=== PATIENT | female | born 1940 | race Caucasian/White ===

== ENCOUNTER 2016-09-05 10:04 | Emergency (ER) | payer MEDICARE, OTHER ==
[2016-09-05 08:01] LABS: BASOPHILS 0.3 %; BASOPHILS ABSOLUTE 0.03 10/3/uL (0.0-0.16); EOSINOPHILS 0.1 %; EOSINOPHILS ABSOLUTE 0.01 10/3/uL (0.0-0.53); HEMOGLOBIN 12.9 g/dL (12.0-16.0); IMMATURE GRANULOCYTES 0.4 %; IMMATURE GRANULOCYTES ABSOLUTE 0.05 10/3/uL (0.0-0.11); LYMPHOCYTES 6.5 %; LYMPHOCYTES ABSOLUTE 0.74 10/3/uL (0.67-4.30); MEAN CORPUS HGB CONC 35.8 g/dL (32.0-36.0); MEAN CORPUSCULAR HEMOGLOB 32.3 pg (26.0-34.0); MEAN PLATELET VOLUME 10.1 fL (9.2-13.0); MONOCYTES 5.3 %; NEUTROPHILS 87.4 %; NEUTROPHILS ABSOLUTE 9.93 10/3/uL (2.02-8.40); RBC DISTRIBUTION WIDTH 14.2 % (12.0-16.0); RED CELL COUNT 3.99 10/6/uL (4.0-5.6)
[2016-09-05 08:02] LABS: ER CBC TAT 0 Hrs 07 Mins; MANUAL DIFF NO %; MEAN CORPUSCULAR VOLUME 90.2 fL (80-100); PLATELET COUNT 433 10/3/uL (150-400); WHITE BLOOD CELLS 11.4 10/3/uL (4.5-10.5)
[2016-09-05 08:16] LABS: CALCIUM, SERUM 9.6 MG/DL (8.5-10.4); CHLORIDE, SERUM 102 MMOL/L (96-112); CO2 (CARBON DIOXIDE) 23 MMOL/L (24-34); CREATININE 0.69 MG/DL (0.55-1.02); GFR AFRICAN AMERICAN 99 ML/MIN (>=60); GFR NON AFRICAN AMERICAN 85 ML/MIN (>=60); GLUCOSE, SERUM 93 MG/DL (60-99); POTASSIUM, SERUM 4.2 MMOL/L (3.5-5.3); SGOT(AST) 59 U/L (5-40); SGPT(ALT) 32 U/L (5-65); SODIUM, SERUM 136 MMOL/L (135-148); TOTAL BILIRUBIN 0.4 MG/DL (0-1.2); TOTAL PROTEIN 7.5 G/DL (6.0-8.5)
[2016-09-05 08:17] LABS: A/G RATIO 0.8 (0.7-1.9); ALBUMIN 3.3 G/DL (3.5-5.0); ALKALINE PHOSPHATASE 146 U/L (45-117); BUN (BLOOD UREA NITROGEN) 14 MG/DL (6-23); GLOBULIN 4.2 G/DL (2.5-4.1)
[~2016-09-05 10:04] MED LIST: ASAEC PO; FLUCON1 PO; NEUR300 PO; NORCO1 TA1 PO; NORV10 PO; PAIN MEDICATION PO; PLAVIX PO; PRAVAC PO; [UNRECOGNIZED DRUG - REMARK]; [UNRECOGNIZED DRUG - REMARK]
== END 2016-09-05 14:40 | disposition home or self-care (01) ==
LOC: ER 10:04
PROVIDERS: Emergency Medicine
DX: J90 Pleural effusion, not elsewhere classified (principal); R10.11 Right upper quadrant pain; C34.90 Malignant neoplasm of unspecified part of unspecified bronchus or lung; I10 Essential (primary) hypertension; D64.9 Anemia, unspecified; F17.200 Nicotine dependence, unspecified, uncomplicated; Z86.73 Personal history of transient ischemic attack (TIA), and cerebral infarction without residual deficits; Z79.899 Other long term (current) drug therapy
CPT/HCPCS: 71010; 74176; 80053; 85025; 87040; 87070; 87205; 93005; 94640; 96374; 99285; A9270-GY; J2930

== ENCOUNTER 2016-09-11 22:22 | Inpatient (IN) | payer MEDICARE, OTHER ==
--- NOTE | ~2016-09-11 | HP ---
History And Physical [place] [address] [facility] [place]. 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 HISTORY OF PRESENT ILLNESS: The patient's history was obtained through careful interview with the patient and stepdaughter, coupled with review of [facility] and [facility]. The patient first developed squamous cell carcinoma of the lung in early 2015 with stage 1 and 3. The patient underwent significant radiation therapy under the care of Dr. Baron, and the surgical evaluation under the care of Dr. Valverde, and seemed to recover well from this. She did however developed dysphagia and had to eventually have a PEG tube placed which she has used without much complication or complaints. But then in July 2016, the patient was found on PET scan to have metastases that has developed extensively throughout the mediastinum and lung, and biopsy in late July 2016 confirm this diagnosis. The patient has therefore been started on Nivolumab under the care of Dr. Wells. But it was just about a week ago that she began to develop increasing shortness of breath characterized by dyspnea on exertion. She has a cough that is mostly nonproductive, but occasionally she will bring up thick sputum that she describes as looking like "fresh meat" but it does not have overt blood in it. She describes a heaviness over her chest associated with coughing and breathing, about a 6/10 severity. No headache. No nausea or vomiting. No throat pain. No abdominal pain. No back pain. She has lost about 10 pounds over the last six months, but her weight has really stabilized over the last month or two. No lightheadedness. No confusion. REVIEW OF SYSTEMS: Otherwise, a 14-point review of systems was obtained and was negative. PAST MEDICAL HISTORY: 1. Squamous cell carcinoma of the throat status post radiation therapy, now with metastases to the lung on "chemotherapy" under the care Dr. Wells and Dr. Baron. 2. Stroke left basal ganglia in 2008. 3. Urinary tract infection. 4. Hypertension. 5. Severe dysphagia with PEG tube placement. History And Physical [address] [place]. [address] NAME: TIERRA HARDY : 40 STATUS : ADM IN [facility]#: [id number] AGE: 75 ADM/REG DATE : 09/11/16 MR#: [id number] REPORT SERV DATE: 09/12/16 DICTATED BY: ESSENCE CARL DATE: 09/12/16 REPORT STATUS : Draft TRANSCRIBED BY: RUBENS DATE: 09/12/16 6. Anemia. 7. Type 2 myocardial infarction. 8. Systolic congestive heart failure with ejection fraction 40% to 45% on 09/07/2016. PAST SURGICAL HISTORY: PEG tube placement. ALLERGIES: NO KNOWN DRUG ALLERGIES. SOCIAL HISTORY: The patient is a smoker. Drinks occasional beer. Had been up to about two to three beers a day, but has cut back. She is a . Lives alone in [place], [place]. Has two step children. FAMILY HISTORY: Mother with renal cell carcinoma. Father of "old age." Sister with diabetes. CURRENT MEDICATIONS: 1. Norvasc 10 mg p.o. daily. 2. Doxycycline 100 mg p.o. b.i.d. 3. Combivent. 4. Megace. 5. Pravachol 20 mg p.o. daily. 6. Tylenol p.r.n. 7. Antihistamines. 8. Nivolumab. PHYSICAL EXAMINATION: VITAL SIGNS: Temperature 97.7, pulse 97, blood pressure 135/57, respiratory rate 24, and O2 saturation 95% on room air. GENERAL: An ill-appearing female, in evidence of distress secondary to cough and shortness of breath. HEENT: Pupils equal, round, and reactive to light. No conjunctival pallor. No scleral icterus. Nares are patent. Oropharynx is clear of obstruction. Moist mucous membranes. NECK: Trachea midline. No thyromegaly. LYMPH: No cervical lymphadenopathy. No supraclavicular lymphadenopathy. No inguinal lymphadenopathy. RESPIRATORY: The patient has inspiratory and expiratory wheezes. Harsh upper respiratory rhonchi. Diminished breath sounds at the base of lungs with dullness to percussion suggest moderate sized bilateral pleural effusions. She has a labored respiratory effort even at rest in the bed. CARDIOVASCULAR: Regular rate and rhythm. No murmurs, rubs, or gallops. No extremity edema is appreciated. ABDOMEN: Soft, nontender, and nondistended. Normal bowel sounds auscultated throughout. No hepatosplenomegaly. DERMATOLOGICAL: Warm and dry extremities. No pallor. No cyanosis. PSYCHIATRIC: Normal affect. Good mood. Alert and oriented x3. LABORATORY DATA: Influenza negative. History And Physical [address] [address] NAME: TIERRA HARDY : 40 STATUS : ADM IN [facility]#: [id number] AGE: 75 ADM/REG DATE : 09/11/16 MR#: [id number] REPORT SERV DATE: 09/12/16 DICTATED BY: ESSENCE CARL DATE: 09/12/16 REPORT STATUS : Draft TRANSCRIBED BY: MODL DATE: 09/12/16 White blood cell count 11, hemoglobin 12, hematocrit 34, and platelets 573. Sodium 132, potassium 3.9, chloride 96, bicarb 23, BUN 18, creatinine 0.71, and glucose 102. Albumin 2.8, AST 53, ALT 35, alkaline phosphatase 174, and total bilirubin 0.3. ABG demonstrates pH 7.52, a PaCO2 of 26, a PaO2 of 65, and a bicarb of 21. STUDIES: 1. Chest x-ray by my own evaluation shows diffuse metastatic disease of the lung with bilateral pleural effusions, flattening of the diaphragms, and COPD changes. 2. EKG by my own evaluation shows sinus rhythm, no major abnormalities. ASSESSMENT AND PLAN: 1. Chronic obstructive pulmonary disease exacerbation. Place on IV Solu-Medrol, Duo nebulizers, doxycycline. Check a procalcitonin. 2. Metastatic disease to the lung. The patient developed squamous cell carcinoma of the throat early in 2015, now with confirmed metastases to the mediastinum and lung. Currently on nivolumab through Dr. Wells. I discussed the case with his partner, Dr. Lee Calderon. 3. Pleural effusions. Consider therapeutic thoracentesis? 4. PEG tube. 5. Chronic systolic congestive heart failure. Ejection fraction 40% to 45%. KPL/MODL Essence Carl M.D. / [id number] CC: Cyndy Morrow III, M.D.
--- NOTE | ~2016-09-11 | DS ---
Discharge Summary [place] [address] [facility] [place]. [address] NAME: TIERRA HARDY : 40 STATUS : ADM IN [facility]#: [id number] AGE: 75 ADM/REG DATE : 09/11/16 MR#: [id number] REPORT SERV DATE: 09/15/16 DICTATED BY: TERRI HENDRICKS DATE: 09/15/16 REPORT STATUS : Draft TRANSCRIBED BY: MODL DATE: 09/15/16 ADMISSION DATE: 09/11/2016 DISCHARGE DATE: ADDENDUM: DISCHARGE MEDICATIONS: Norvasc 10 mg a day, aspirin 81 mg a day, Megace 30 mL daily, nicotine patch 21 mg topically, pravastatin 20 mg a day, Combivent 1 puff inhaled twice a day, Tylenol 650 b.i.d. p.r.n. for pain. Continue home antihistamine. The patient was given prescription tapering course of prednisone 40 mg daily for three days, then 30 mg daily for three days, then 20 mg daily for three days, then to stop. Lasix 40 mg daily, and Ceftin 500 mg p.o. b.i.d. for five days. Spent 45 minutes on discharge. MG/MODL Terri Hendricks M.D. / [id number] CC: Cyndy Vieyra
--- NOTE | ~2016-09-11 | DS ---
Discharge Summary [place] [address] [place]. [address] NAME: ITERRA HARDY : 40 STATUS : ADM IN [facility]#: [id number] AGE: 75 ADM/REG DATE : 09/11/16 MR#: [id number] REPORT SERV DATE: 09/15/16 DICTATED BY: TERRI HENDRICKS DATE: 09/15/16 REPORT STATUS : Draft TRANSCRIBED BY: MODL DATE: 09/15/16 ADMISSION DATE: 09/11/2016 DISCHARGE DATE: 09/15/2016 ONCOLOGIST: Dr. Wells. DIAGNOSES ON ADMISSION: 1. Chronic obstructive pulmonary disease exacerbation. 2. Metastatic disease to the lung/history of squamous cell carcinoma of the throat in 2017, now with confirmed metastasis to the mediastinum and lungs. 3. Pleural effusions, asymptomatic. 4. Chronic PEG tube. 5. Mild CHF. Chronic systolic dysfunction with an ejection fraction of 40% to 45%. DIAGNOSES ON DISCHARGE: 1. Chronic obstructive pulmonary disease exacerbation resolved. 2. CHF, chronic systolic dysfunction compensated. Ejection fraction 40 to 45%. Fluid restriction and oral Lasix recommended. 3. Squamous cell carcinoma of the throat, status post radiation therapy per oncologist Dr. Wells. 4. Metastasis to the lungs per oncologist Dr. Wells. 5. History of chronic dysphagia with a chronic PEG tube. 6. Chronic bilateral pleural effusions, stable. RACK LOADER ON THE CASE: Dr. Wells, oncologist. HISTORY OF PRESENT ILLNESS: Per dictation of Dr. Casillas on 09/11/2016. HOSPITAL COURSE: Hospital course per notes of Dr. Sauceda, I saw this patient today on 09/15/2016, and the patient wanted to be discharged home since yesterday per Dr. Sauceda's recommendation. We checked her oxygenation on room air. It was 97 at rest and 95 on ambulation, so she did not require any oxygen as well as she does not have shortness of breath and wheezing and doing well. She was evaluated by Physical Therapy and they were okay for her to go home although they recommended home health but the patient strongly refused home health. She is going home with a walker which will be arranged per case management. Also, Dr. Wells who saw the patient yesterday was contacted and his partner Dr. Arnulfo Nicholas recommended the patient to be discharged since her COPD exacerbation resolved. He also recommended the patient to follow up with Dr. Wells tomorrow in the office on 09/16/2016 at 10:15 and the patient was told about her appointment. She knows that she has an appointment tomorrow and the timing was also reported to the patient as well as there is a possibility that her cancer medicine nivolumab contributes to her shortness of breath, so, Dr. Wells needs to decide tomorrow if the patient needs to continue her chemotherapy or it should be on hold. This was also recommended by Dr. Wells's partner Dr. Arnulfo Nicholas. Regarding her CHF, she has chronic systolic dysfunction and according to echocardiogram, which was done on 09/07/2016, her ejection fraction was 40 to 45%. We recommended Lasix at Discharge Summary [address] [place]. [address] NAME: TIERRA HARDY : 40 STATUS : ADM IN [facility]#: [id number] AGE: 75 ADM/REG DATE : 09/11/16 MR#: [id number] REPORT SERV DATE: 09/15/16 DICTATED BY: TERRI HENDRICKS DATE: 09/15/16 REPORT STATUS : Draft TRANSCRIBED BY: MODSidney DATE: 09/15/16 40 mg a day and she was given IV Lasix here and she did not require any potassium supplementation. Her potassium has been in the appropriate range since 09/11/2016, admission; on 09/11/2016, was 3.9; on 09/12/2016, was 4.3; on 09/13/2016, was 4.5; and on 09/14/2016, was 4.8; and today 09/15/2016, was 4.1, so she needs to follow up with Margaret Macario and check her BMP and potassium on 09/18/2016. This was also discussed with the patient. The patient needs to be on a fluid restriction 1800 per 24 hours. The patient was discharged in stable condition. She will follow up with Dr. Wells as well. I spent 45 minutes on discharge. MG/MODL Terri Hendricks M.D. / [id number] CC: Cyndy Vieyra III, M.D.
[2016-09-11 21:37] LABS: BE (BASE EXCESS) -0.4 MEQ/L (0 +/- 2.5); INSTRUMENT SERIAL # 8087; PCO2 (CO2 TENSION) 26 MMHG (35-45); PO2 (O2 TENSION) 65 MMHG (79-93); pH 7.53 (7.37-7.43)
[2016-09-11 21:38] LABS: BASOPHILS 0.2 %; BASOPHILS ABSOLUTE 0.02 10/3/uL (0.0-0.16); EOSINOPHILS 0.6 %; EOSINOPHILS ABSOLUTE 0.07 10/3/uL (0.0-0.53); HEMATOCRIT 34.5 % (36.0-48.0); HEMOGLOBIN 12.1 g/dL (12.0-16.0); IMMATURE GRANULOCYTES 0.5 %; IMMATURE GRANULOCYTES ABSOLUTE 0.06 10/3/uL (0.0-0.11); LYMPHOCYTES 7.7 %; LYMPHOCYTES ABSOLUTE 0.85 10/3/uL (0.67-4.30); MEAN CORPUS HGB CONC 35.1 g/dL (32.0-36.0); MEAN CORPUSCULAR HEMOGLOB 31.6 pg (26.0-34.0); MEAN CORPUSCULAR VOLUME 90.1 fL (80-100); MEAN PLATELET VOLUME 10.4 fL (9.2-13.0); MONOCYTES 10.1 %; MONOCYTES ABSOLUTE 1.12 10/3/uL (0.21-1.20); NEUTROPHILS 80.9 %; NEUTROPHILS ABSOLUTE 8.93 10/3/uL (2.02-8.40); RBC DISTRIBUTION WIDTH 14.3 % (12.0-16.0); RED CELL COUNT 3.83 10/6/uL (4.0-5.6); WHITE BLOOD CELLS 11.1 10/3/uL (4.5-10.5)
[2016-09-11 21:38] LABS: ALLENS TEST Pos; CARBOXYHEMOGLOBIN 2.2 % (0-3); HCO3 (ACTUAL BICARBONATE) 21.2 MEQ/L (23-27); HEMOBLOGIN CONTENT 11.9 G/DL (12-16); METHEMOGLOBIN 0.1 % (0-3); O2 CONTENT 15.4 VOL% (18-24); OPERATOR ID 17589; SAMPLE Arterial
[2016-09-11 21:40] LABS: MANUAL DIFF NO %; PLATELET COUNT 573 10/3/uL (150-400)
[2016-09-11 21:55] LABS: A/G RATIO 0.6 (0.7-1.9); ALBUMIN 2.8 G/DL (3.5-5.0); ALKALINE PHOSPHATASE 174 U/L (45-117); BUN (BLOOD UREA NITROGEN) 18 MG/DL (6-23); CHLORIDE, SERUM 96 MMOL/L (96-112); CO2 (CARBON DIOXIDE) 23 MMOL/L (24-34); CREATININE 0.71 MG/DL (0.55-1.02); GFR AFRICAN AMERICAN 97 ML/MIN (>=60); GFR NON AFRICAN AMERICAN 83 ML/MIN (>=60); GLOBULIN 4.5 G/DL (2.5-4.1); GLUCOSE, SERUM 102 MG/DL (60-99); POTASSIUM, SERUM 3.9 MMOL/L (3.5-5.3); SGOT(AST) 53 U/L (5-40); SGPT(ALT) 35 U/L (5-65); SODIUM, SERUM 132 MMOL/L (135-148); TOTAL BILIRUBIN 0.3 MG/DL (0-1.2); TOTAL PROTEIN 7.3 G/DL (6.0-8.5)
[2016-09-11 22:01] LABS: INFLUENZA A SCREEN NEGATIVE (NEGATIVE); INFLUENZA B SCREEN NEGATIVE (NEGATIVE)
[2016-09-11] MEDS ORDERED: COMBIVENT RESPIM4 GM INH (22:49)
[2016-09-11] MEDS ORDERED: MONODOX100 MG PO (22:50)
[2016-09-11] MEDS ORDERED: PRAVAC PO (22:50)
[2016-09-11] MEDS ORDERED: MEGACEUDL PO (22:51)
[2016-09-11] MEDS ORDERED: T PO (22:52)
[2016-09-11] MEDS ORDERED: ANTIHISTAMINE OTC PO (22:53)
[2016-09-11] MEDS ORDERED: CHEMOTHERAPY (22:54)
[2016-09-12 06:31] LABS: BASOPHILS 0.1 %; BASOPHILS ABSOLUTE 0.01 10/3/uL (0.0-0.16); EOSINOPHILS 0 %; HEMATOCRIT 32.1 % (36.0-48.0); HEMOGLOBIN 11.4 g/dL (12.0-16.0); IMMATURE GRANULOCYTES 0.4 %; IMMATURE GRANULOCYTES ABSOLUTE 0.04 10/3/uL (0.0-0.11); LYMPHOCYTES 4.8 %; LYMPHOCYTES ABSOLUTE 0.44 10/3/uL (0.67-4.30); MEAN CORPUS HGB CONC 35.5 g/dL (32.0-36.0); MEAN CORPUSCULAR HEMOGLOB 31.8 pg (26.0-34.0); MEAN CORPUSCULAR VOLUME 89.4 fL (80-100); MEAN PLATELET VOLUME 10.1 fL (9.2-13.0); MONOCYTES 2.5 %; MONOCYTES ABSOLUTE 0.23 10/3/uL (0.21-1.20); NEUTROPHILS 92.2 %; NEUTROPHILS ABSOLUTE 8.47 10/3/uL (2.02-8.40); PLATELET COUNT 557 10/3/uL (150-400); RBC DISTRIBUTION WIDTH 14.1 % (12.0-16.0); RED CELL COUNT 3.59 10/6/uL (4.0-5.6); WHITE BLOOD CELLS 9.2 10/3/uL (4.5-10.5)
[2016-09-12 06:32] LABS: MANUAL DIFF NO %
[2016-09-12 06:43] LABS: INTERNATIONAL NORMAL RATI 1.2 UNITS (-); PROTIME (NOT ORD) 14.8 SEC (12.0-14.5)
[2016-09-12 06:53] LABS: A/G RATIO 0.6 (0.7-1.9); ALBUMIN 2.6 G/DL (3.5-5.0); CALCIUM, SERUM 9.2 MG/DL (8.5-10.4); CHLORIDE, SERUM 100 MMOL/L (96-112); CO2 (CARBON DIOXIDE) 20 MMOL/L (24-34); CPK 64 U/L (0-200); CREATININE 0.65 MG/DL (0.55-1.02); GFR AFRICAN AMERICAN 101 ML/MIN (>=60); GFR NON AFRICAN AMERICAN 87 ML/MIN (>=60); GLOBULIN 4.3 G/DL (2.5-4.1); POTASSIUM, SERUM 4.3 MMOL/L (3.5-5.3); SGOT(AST) 47 U/L (5-40); SGPT(ALT) 32 U/L (5-65); SODIUM, SERUM 133 MMOL/L (135-148); TOTAL BILIRUBIN 0.4 MG/DL (0-1.2); TOTAL PROTEIN 6.9 G/DL (6.0-8.5)
[2016-09-12 06:55] LABS: ALKALINE PHOSPHATASE 144 U/L (45-117); BUN (BLOOD UREA NITROGEN) 14 MG/DL (6-23); CK-MB 4.5 NG/ML; GLUCOSE, SERUM 152 MG/DL (60-99); TROPONIN I 0.51 NG/ML (<0.05)
[2016-09-12 07:15] LABS: PROCALCITONIN 0.29 ng/mL (<0.5)
[2016-09-13 07:03] LABS: BASOPHILS 0.1 %; BASOPHILS ABSOLUTE 0.01 10/3/uL (0.0-0.16); EOSINOPHILS 0 %; HEMATOCRIT 31.4 % (36.0-48.0); IMMATURE GRANULOCYTES 0.5 %; IMMATURE GRANULOCYTES ABSOLUTE 0.05 10/3/uL (0.0-0.11); LYMPHOCYTES 5.9 %; LYMPHOCYTES ABSOLUTE 0.62 10/3/uL (0.67-4.30); MEAN CORPUSCULAR HEMOGLOB 31.7 pg (26.0-34.0); MEAN CORPUSCULAR VOLUME 90.5 fL (80-100); MONOCYTES 6.4 %; MONOCYTES ABSOLUTE 0.67 10/3/uL (0.21-1.20); NEUTROPHILS 87.1 %; NEUTROPHILS ABSOLUTE 9.17 10/3/uL (2.02-8.40); PLATELET COUNT 530 10/3/uL (150-400); RBC DISTRIBUTION WIDTH 14.4 % (12.0-16.0); RED CELL COUNT 3.47 10/6/uL (4.0-5.6); WHITE BLOOD CELLS 10.5 10/3/uL (4.5-10.5)
[2016-09-13 07:11] LABS: MANUAL DIFF NO %
[2016-09-13 07:39] LABS: BUN (BLOOD UREA NITROGEN) 13 MG/DL (6-23); CALCIUM, SERUM 9.3 MG/DL (8.5-10.4); CHLORIDE, SERUM 100 MMOL/L (96-112); CO2 (CARBON DIOXIDE) 23 MMOL/L (24-34); CREATININE 0.71 MG/DL (0.55-1.02); GFR AFRICAN AMERICAN 97 ML/MIN (>=60); GFR NON AFRICAN AMERICAN 83 ML/MIN (>=60); POTASSIUM, SERUM 4.5 MMOL/L (3.5-5.3); SODIUM, SERUM 133 MMOL/L (135-148)
[2016-09-13 07:40] LABS: GLUCOSE, SERUM 121 MG/DL (60-99); TROPONIN I 0.33 NG/ML (<0.05)
[2016-09-14 06:02] LABS: CALCIUM, SERUM 9.1 MG/DL (8.5-10.4); CHLORIDE, SERUM 94 MMOL/L (96-112); CO2 (CARBON DIOXIDE) 22 MMOL/L (24-34); CREATININE 0.73 MG/DL (0.55-1.02); GFR AFRICAN AMERICAN 93 ML/MIN (>=60); GFR NON AFRICAN AMERICAN 81 ML/MIN (>=60); GLUCOSE, SERUM 107 MG/DL (60-99); POTASSIUM, SERUM 4.8 MMOL/L (3.5-5.3); SODIUM, SERUM 133 MMOL/L (135-148)
[2016-09-14 06:07] LABS: BUN (BLOOD UREA NITROGEN) 22 MG/DL (6-23)
[2016-09-15 06:00] LABS: BUN (BLOOD UREA NITROGEN) 25 MG/DL (6-23); CALCIUM, SERUM 9.3 MG/DL (8.5-10.4); CHLORIDE, SERUM 92 MMOL/L (96-112); CO2 (CARBON DIOXIDE) 26 MMOL/L (24-34); CREATININE 0.74 MG/DL (0.55-1.02); GFR AFRICAN AMERICAN 92 ML/MIN (>=60); GFR NON AFRICAN AMERICAN 79 ML/MIN (>=60); GLUCOSE, SERUM 113 MG/DL (60-99); POTASSIUM, SERUM 4.1 MMOL/L (3.5-5.3); SODIUM, SERUM 131 MMOL/L (135-148)
[2016-09-15] MEDS ORDERED: CEFT5 PO (15:21)
[2016-09-15] MEDS ORDERED: STERAPRED DS10 MG (15:21)
[2016-09-15] MEDS ORDERED: L40 PO (15:21)
== END 2016-09-15 16:04 | disposition home or self-care (01) | DRG 190 ==
LOC: ER 22:22 → 5SO 23:59
PROVIDERS: Hospitalist; Internal Medicine
DX: J44.1 Chronic obstructive pulmonary disease with (acute) exacerbation (principal); I50.23 Acute on chronic systolic (congestive) heart failure; C78.00 Secondary malignant neoplasm of unspecified lung; J90 Pleural effusion, not elsewhere classified; I11.0 Hypertensive heart disease with heart failure; C78.1 Secondary malignant neoplasm of mediastinum; Z93.1 Gastrostomy status; C14.0 Malignant neoplasm of pharynx, unspecified
CPT/HCPCS: 36600; 71010; 71020; 80048; 80053; 82550; 82553; 82805; 83605; 83735; 83880; 84145; 84443; 84484; 85025; 85610; 85730; 87040; 87070; 87077; 87186; 87205; 87804; 93005; 94640; 96374; 97161-GP; 97164-GP; 99285; A9270-GY; G8978-CH-GP; G8979-CH-GP; G8980-CH-GP; J2920; J2930

== ENCOUNTER 2016-09-19 21:54 | Inpatient (IN) | payer MEDICARE, OTHER ==
--- NOTE | ~2016-09-19 | HP ---
History And Physical [place] [place]. [address] NAME: TIERRA HARDY : 40 STATUS : ADM IN [facility]#: [id number] AGE: 75 ADM/REG DATE : 09/20/16 MR#: [id number] REPORT SERV DATE: 09/20/16 DICTATED BY: RUBÉN PETERSON DATE: 09/20/16 REPORT STATUS : Draft TRANSCRIBED BY: MODL DATE: 09/20/16 DATE OF ADMISSION: 09/20/2016 CHIEF COMPLAINT: She thinks her PEG tube is infected with discharge around it. 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 History is obtained from the patient and reviewing data available on the [email or web address] system. According to Mrs. Hardy, she had been in the usual state of health and has just finished her radiation therapy and three rounds of chemo for metastatic squamous cell carcinoma and feels that there is a malodorous discharge around the PEG tube, and it is infected. She decided to come to the emergency room to be evaluated. Other than that, she has not had any other significant symptoms. In the emergency room, initial workup showed that she had new-onset atrial fibrillation when compared to prior data available. She had metastatic disease to the lungs, liver, and other organs that is not new. She does have bilateral pleural effusions and an elevated troponin level as well. Hospitalist Service is asked to admit her for further evaluation and treatment. At the time of my evaluation, she denied any chest pain or palpitations. She has had no orthopnea. She did not have a cough, denied any hemoptysis, night sweats, or weight loss. She denied any fevers or chills but does feel cold all the time. She denied any nausea, vomiting, diarrhea, hematemesis, hematochezia, or hematuria. No other history of recent travel or exposures other than those mentioned above. 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 SOCIAL HISTORY: She has about 75-pack year history of smoking, although she quit few months ago. She has an occasional beer. Otherwise denied any recreational drug use. FAMILY HISTORY: Noncontributory. MEDICATIONS: At home were reviewed by me in the chart today and reordered by me. REVIEW OF SYSTEMS: As in history of present illness. All other systems were reviewed in detail and are quite unremarkable. PHYSICAL EXAMINATION: GENERAL: This is a pleasant 75-year old, not in any acute distress. She is alert, awake, oriented to time, place, and person. History And Physical [address] [address] NAME: TIERRA HARDY : 40 STATUS : ADM IN PAT#: [id number] AGE: 75 ADM/REG DATE : 09/20/16 MR#: [id number] REPORT SERV DATE: 09/20/16 DICTATED BY: RUBÉN PETERSON DATE: 09/20/16 REPORT STATUS : Draft TRANSCRIBED BY: RUBENS DATE: 09/20/16 HEENT: Her head is atraumatic, normocephalic. Her pupils are equal, reacting to light and accommodating. External ocular muscles are intact. Membranes are moist and pink. Sclerae are nonicteric. NECK: Supple with no jugular venous distention, lymphadenopathy, or thyromegaly. LUNGS: Clear to auscultation with no wheezes, rubs, or crackles. HEART: Heart sounds were irregularly irregular. ABDOMEN: Soft, nontender. Bowel sounds are present. EXTREMITIES: Showed no cyanosis, clubbing, or edema. NEUROLOGIC: Grossly intact. No focal sensory or motor deficits. Higher functions appeared intact. SKIN: The area around the PEG tube appeared to be discharge free at least at the time of my evaluation, but there is a bad odor. VITAL SIGNS: Her vital signs today showed a temperature of 97.4, pulse 106, respirations 28 a minute, blood pressure was 156/67, oxygen saturations were 96% on room air. LABORATORY DATA: Reviewed on the [email or web address] system showed a sodium of 128, potassium 3.1, chloride 89, and CO2 of 25. BUN was 24 with a creatinine of 0.84, and her glucose was 98. Her lactate today was 3.5. [place] [address], hemoglobin was 11.8, hematocrit 33.2, and platelet count was 561,000. Her prothrombin time was 14.4 with an INR of 1.1. Urinalysis was grossly unremarkable. Films of the chest x-ray were reviewed by me on the PACS today and interpreted by me. Per my interpretation, there are multiple metastatic nodules with bilateral pleural effusions. There is compressive atelectasis as well. Films of the CT scan of the abdomen and pelvis were reviewed by me on the PACS today and interpreted by me. There is metastatic disease as mentioned above with compressive atelectasis bilaterally versus pneumonia. A 12-lead EKG done in the emergency room was reviewed and interpreted by me. There is atrial fibrillation with a rate of 97. There is QT prolongation as well with a QTc of 571. IMPRESSION: 1. New-onset atrial fibrillation. 2. Metastatic squamous cell cancer. 3. PEG tube infection. 4. Elevated troponin. 5. Bilateral pleural effusions. 6. Chronic obstructive pulmonary disease. PLAN: We will admit Mrs. Hardy to the Hospitalist Service with cardiac telemetry. We will go ahead and consult Dr. Yahir Wells, her oncologist as she is on chemotherapy at this time. Her atrial fibrillation is rate controlled. I am a little hesitant in starting her on heparin infusion because of her malignant pleural effusions. I do not know if these are hemorrhagic at this point. We will get an echocardiogram in the morning and check her BNP as well. We will go ahead and consult Cardiology Service to evaluate her. Meanwhile, we will also follow serial cardiac enzymes to rule out acute coronary syndrome. We will History And Physical [address] [address] NAME: TIERRA HARDY : 40 STATUS : ADM IN [facility]#: [id number] AGE: 75 ADM/REG DATE : 09/20/16 MR#: [id number] REPORT SERV DATE: 09/20/16 DICTATED BY: RUBÉN PETERSON DATE: 09/20/16 REPORT STATUS : Draft TRANSCRIBED BY: MODSidney DATE: 09/20/16 obtain cultures at this point and start her on empiric IV antibiotics. We will also get Gastroenterology Service to evaluate her PEG tube. Meanwhile, we will go ahead and maximize her bronchodilator treatments, continue supplemental oxygen therapy. We will continue all other home medications and treatments at this time and place her on unfractionated heparin subcutaneously for DVT prophylaxis. Please see today's orders for details. I have discussed the above plans with the patient. Her questions were answered, and she is agreeable to the above recommendations. Hospitalist Service will be following her during her stay here. /RUBENS Rubén Peterson M.D. / [id number] CC: Cyndy Galvan
--- NOTE | ~2016-09-19 | DS ---
Discharge Summary [facility] [address] [place]. [address] NAME: TIERRA HARDY : 40 STATUS : DIS IN PAT#: [id number] AGE: 75 ADM/REG DATE : 09/20/16 MR#: [id number] REPORT SERV DATE: 09/22/16 DICTATED BY: CECILIA BLAND II DATE: 09/21/16 REPORT STATUS : Draft TRANSCRIBED BY: MODL DATE: 09/21/16 ADMISSION DATE: 09/20/2016 DISCHARGE DATE: 09/21/2016 DISCHARGE DIAGNOSES: 1. Paroxysmal atrial fibrillation versus multifocal atrial tachycardia, though now in normal sinus rhythm. 2. Chronic systolic congestive heart failure. 3. Chronic bilateral pleural effusions. 4. Questionable PEG infection initially, though now none identified. 5. Chronic obstructive pulmonary disease, on home O2, stable. 6. Metastatic head and neck cancer, followed by Oncology. CONSULTS: Dr. Brewster with GI and Dr. Abreu with Cardiology. BRIEF HISTORY OF PRESENT ILLNESS: The patient is a 75-year-old female with the above history, who presented to [facility] due to concern about PEG tube being infected with drainage around it. She was also found to be in new onset atrial fibrillation and was subsequent admitted. For detailed history and physical examination, please see Dr. Rubén Delarosa's note from 09/20/2016. HOSPITAL COURSE: On admission, she was started on cefepime given she had a white count of 12 and was mildly tachycardic in the low 100s. She had no significant symptoms of shortness of breath or chest pain. Dr. Brewster was consulted regarding her PEG tube and thought that she had a loose bumper, which was tightened and the patient was educated. She had to readjust her bumper another time by Dr. Montanez, but currently stable, functioning well per Gastrografin study, and she is actually not even using it at home. She drinks her TwoCal and is actually able to swallow more than she was able to back in April. Regarding her paroxysmal atrial fibrillation that was concerning on admission, Cardiology thought this could also be multifocal atrial tachycardia. She was rate controlled without any additional medication and converted back to normal sinus rhythm. There was discussion between Dr. Abreu of Cardiology in Oncology and given her underlying disease and debility, they decided she was not a good anticoagulation candidate. On admission, she appeared to be hyponatremic with a mildly elevated BUN. She had been previously started on Lasix on her previous admission, which could account for some tachycardia. She was also mildly hypokalemic. She has a mildly decreased EF of 40% to 45% and bilateral pleural effusions. Her BNP is mildly elevated at 122, but at this point in time, appears fairly euvolemic. Chest x-ray showed increasing size and number of bilateral parenchymal and pleural based nodules compared to 09/14/2016. Also persistent bilateral pleural effusions and basilar atelectasis, would favor lisinopril over diuretic given her previous history of dysphagia and poor p.o. intake, so we will switch her over to JOANNA inhibitor. As there is no evidence of infection, we will discontinue her antibiotics and currently, the patient is doing well and wants to go home, so we will have her follow up in Oncology Clinic in one to two weeks. We will reserve her Lasix as needed for edema. DISCHARGE MEDICATIONS: Discharge Summary [address] [address] NAME: TIERRA HARDY : 40 STATUS : DIS IN PAT#: [id number] AGE: 75 ADM/REG DATE : 09/20/16 MR#: [id number] REPORT SERV DATE: 09/22/16 DICTATED BY: CECILIA BLAND II DATE: 09/21/16 REPORT STATUS : Draft TRANSCRIBED BY: RUBENS DATE: 09/21/16 1. Amlodipine 10 mg p.o. daily. 2. Aspirin 81 mg p.o. daily. 3. Lasix 40 mg p.o. daily p.r.n. edema. 4. Megace 30 mL p.o. daily. 5. Pravachol 20 mg p.o. daily. 6. Prednisone 10 day dose pack to finish taper. 7. Tylenol 60 mg p.o. daily p.r.n. 8. Albuterol neb four times a day. 9. Lisinopril 10 mg p.o. daily. DISCHARGE INSTRUCTIONS: The patient will follow up with Dr. Wells in one to two weeks. LILIA/RUBENS Cecilia Bland II, MD / [id number] CC: Cecilia Bland II, MD [facility] [place]
--- NOTE | ~2016-09-19 | CN ---
Consultation Report [facility] [address] [place]. [address] NAME: TIERRA HARDY : 40 STATUS : ADM IN [facility]#: [id number] AGE: 75 ADM/REG DATE : 09/20/16 MR#: [id number] REPORT SERV DATE: 09/20/16 DICTATED BY: LAN LOUISE DATE: 09/20/16 REPORT STATUS : Draft TRANSCRIBED BY: MODL DATE: 09/20/16 DATE OF CONSULTATION: 09/20/2016 HISTORY OF PRESENT ILLNESS: This is a 75-year-old white female, I am seeing for Dr. 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 Valverde also followed by Dr. Wells, metastatic disease to lung, liver, adrenals, also bilateral pleural effusions. Has had chemotherapy last infusion 3 weeks ago. Also history of radiation, admitted with new-onset Afib. Has had also intermittent abdominal pain around PEG site which was placed. The PEG was placed about 6 months ago. No obvious drainage from PEG. No redness or inflammation noted around the site. Has had a CT this admission revealing evidence of a metastatic disease. She also has history of COPD, history of some shortness of breath. No nausea or vomiting. No change in bowel habits. Does have history of hypertension. Hemoglobin 11.8, white count 12,600, and platelets 561,000. INR of 1.1. SOCIAL HISTORY: Positive EtOH or nicotine. FAMILY HISTORY: Negative for colon cancer. PHYSICAL EXAMINATION: GENERAL: Chronic ill-appearing white female, alert. HEENT: Anicteric. NECK: Negative. CHEST: Decreased breath sounds bilaterally. HEART: Irregular rhythm. ABDOMEN: Soft, nontender at the present time. PEG tube noted. The bumper was extremely loose. This was tightened down manually. No excoriation around PEG site. EXTREMITIES/NEUROLOGIC: Grossly intact. ASSESSMENT: 1. 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 2. Status post PEG placement six months ago for feeding difficulties, now with some intermittent pain and also has had a loose bumper, which was now tightened. 3. New-onset atrial fibrillation. 4. Chronic obstructive pulmonary disease. 5. Hypertension. SUGGESTIONS: 1. Continue current antibiotics. 2. Instructed on maintaining tight bumper to prevent back leakage. 3. We will check a Gastrografin study to check placement of PEG. 4. Dr. Montanez back in the a.m. DC/MODL Consultation Report [place] [id number] [facility] [address] [facility] [address] NAME: TIERRA HARDY : 40 STATUS : ADM IN PAT#: [id number] AGE: 75 ADM/REG DATE : 09/20/16 MR#: [id number] REPORT SERV DATE: 09/20/16 DICTATED BY: LAN LOUISE DATE: 09/20/16 REPORT STATUS : Draft TRANSCRIBED BY: RUBENS DATE: 09/20/16 Lan Louise M.D. / [id number] CC: Cyndy Galvan CINDY MARIE Henry Paik, M.D.
--- NOTE | ~2016-09-19 | CN ---
Consultation Report [facility] [address] [place]. [address] NAME: TIERRA HARDY : 40 STATUS : ADM IN [facility]#: [id number] AGE: 75 ADM/REG DATE : 09/20/16 MR#: [id number] REPORT SERV DATE: 09/20/16 DICTATED BY: LARRY ABREU JR. DATE: 09/20/16 REPORT STATUS : Draft TRANSCRIBED BY: RUBENS DATE: 09/20/16 CONSULTATION DATE OF CONSULTATION: 09/20/2016 INDICATIONS FOR REFERRAL: Possible atrial fibrillation. HISTORY OF PRESENT ILLNESS: Mrs. 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 She presented after chemotherapy and radiation therapy feeling that she has an infected PEG tube site. EKG in the ER suggests the possibility of paroxysmal atrial fibrillation versus multifocal atrial tachycardia. The patient is unaware of palpitations. She denies chest pain or changes in shortness of breath. She denies dizziness or presyncope. PAST MEDICAL HISTORY: Includes COPD, metastatic squamous cell carcinoma with radiation therapy and chemotherapy, history of PEG tube placement. 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 She has hypertension and mixed hyperlipidemia. ALLERGIES: DENIED. CURRENT MEDICATIONS: Please see the MAR which was reviewed. SOCIAL HISTORY: The patient has a [id number] history of tobacco use. She quit three-four months ago. She occasionally drinks one beer. She does not use recreational drugs. FAMILY HISTORY: Negative for early or mid life vascular events. REVIEW OF SYSTEMS: She denies bleeding diathesis. She has anorexia and some weight loss. She denies fever or chills. Remainder as in HPI or negative. PHYSICAL EXAMINATION: VITAL SIGNS: Blood pressure is 155/67, heart rate 80-106, respirations 16. GENERAL: Fairly cachectic elderly female, in no acute distress. HEENT: Anicteric, no scleral injection, no oral lesions. NECK: No JVD, supple, no bruits. LUNGS: Hyperexpanded but clear. CARDIOVASCULAR: Regular rate and rhythm with rare ectopy. ABDOMEN: Soft, nontender. Normoactive bowel sounds, no hepatosplenomegaly. EXTREMITIES: No clubbing, cyanosis or edema. SKIN: No visible rashes. NEURO/PSY: Normal affect, alert and oriented x3. Consultation Report [facility] [address] [place]. [address] NAME: TIERRA HARDY : 40 STATUS : ADM IN PAT#: [id number] AGE: 75 ADM/REG DATE : 09/20/16 MR#: [id number] REPORT SERV DATE: 09/20/16 DICTATED BY: LARRY ABREU JR. DATE: 09/20/16 REPORT STATUS : Draft TRANSCRIBED BY: RUBENS DATE: 09/20/16 LABORATORY DATA: Sodium is 128, potassium is 3.1, creatinine is 0.84. White count is 12.6 with hematocrit of 33, platelets are 561. Troponin is 0.09. BNP is 122. EKG: EKG reveals possible atrial fibrillation with heart rate of 97. Anterolateral ST and T wave abnormality, cannot exclude ischemia. MEDICAL DECISION MAKIN. Possible atrial fibrillation. The patient is in sinus rhythm currently. Telemetry has suggested atrial bigeminy. The patient is asymptomatic with her rhythm and did not have significantly tachycardic response. She does have a high CHADS2 score, but may be a poor anticoagulation candidate. We will need to confer with Oncology. We will check echocardiography with further recommendations to follow. 2. Abnormal troponin. The patient does not have evidence of an acute coronary syndrome. She has multiple risk factors for ischemic heart disease. We will follow serial troponins and re-evaluate with echocardiography. We will proceed with a conservative approach to care. 3. Hypertension. This is stable on medical therapy. 4. Mixed hyperlipidemia. The patient voices statin compliance. MARGA/RUBENS Larry Abreu Jr., M.D. / [id number] CC: MD Renaldo Miller II, Margaret Wells III, M.D.
[~2016-09-19 21:54] MED LIST changes: +ANTIHISTAMINE OTC PO; +CEFT5 PO; +CHEMOTHERAPY; +COMBIVENT RESPIM4 GM INH; +L40 PO; +MEGACEUDL PO; +MONODOX100 MG PO; +STERAPRED DS10 MG; +T PO
[2016-09-19 23:04] LABS: BASOPHILS 0 %; EOSINOPHILS 0.1 %; EOSINOPHILS ABSOLUTE 0.01 10/3/uL (0.0-0.53); ER CBC TAT 0 Hrs 05 Mins; HEMATOCRIT 33.2 % (36.0-48.0); HEMOGLOBIN 11.8 g/dL (12.0-16.0); IMMATURE GRANULOCYTES 0.5 %; IMMATURE GRANULOCYTES ABSOLUTE 0.06 10/3/uL (0.0-0.11); LYMPHOCYTES 4.6 %; LYMPHOCYTES ABSOLUTE 0.58 10/3/uL (0.67-4.30); MEAN CORPUS HGB CONC 35.5 g/dL (32.0-36.0); MEAN CORPUSCULAR HEMOGLOB 31.3 pg (26.0-34.0); MEAN CORPUSCULAR VOLUME 88.1 fL (80-100); MEAN PLATELET VOLUME 9.6 fL (9.2-13.0); MONOCYTES 10.4 %; MONOCYTES ABSOLUTE 1.31 10/3/uL (0.21-1.20); NEUTROPHILS 84.4 %; NEUTROPHILS ABSOLUTE 10.66 10/3/uL (2.02-8.40); PLATELET COUNT 561 10/3/uL (150-400); RBC DISTRIBUTION WIDTH 13.9 % (12.0-16.0); RED CELL COUNT 3.77 10/6/uL (4.0-5.6); WHITE BLOOD CELLS 12.6 10/3/uL (4.5-10.5)
[2016-09-19 23:06] LABS: MANUAL DIFF NO %
[2016-09-19] MEDS ORDERED: ALBUTEROL0.083 % INH (23:12)
[2016-09-19 23:14] LABS: INTERNATIONAL NORMAL RATI 1.1 UNITS (-); PARTIAL THROMBO TIME 28.9 SEC (22.5-37.2); PROTIME (NOT ORD) 14.4 SEC (12.0-14.5)
[2016-09-19] MEDS ORDERED: ASAB PO (23:17)
[2016-09-19 23:21] LABS: BUN (BLOOD UREA NITROGEN) 24 MG/DL (6-23); CALCIUM, SERUM 8.5 MG/DL (8.5-10.4); CHLORIDE, SERUM 89 MMOL/L (96-112); CO2 (CARBON DIOXIDE) 25 MMOL/L (24-34); CREATININE 0.84 MG/DL (0.55-1.02); GFR AFRICAN AMERICAN 79 ML/MIN (>=60); GFR NON AFRICAN AMERICAN 68 ML/MIN (>=60); GLUCOSE, SERUM 98 MG/DL (60-99); SODIUM, SERUM 128 MMOL/L (135-148)
[2016-09-19 23:22] LABS: LACTATE 3.5 MMOL/L (0.3-2.4); POTASSIUM, SERUM 3.1 MMOL/L (3.5-5.3)
[2016-09-19 23:24] LABS: CHEST PAIN PROFILE TAT 0 Hrs 25 Mins; TROPONIN I 0.09 NG/ML (<0.05)
[2016-09-19 23:39] LABS: ASCORBIC ACID (UR NOT ORDER) NEG (NEG); BILIRUBIN, URINE NEGATIVE (NEG); ER URINALYSIS TAT 0 Hrs 00 Mins; KETONE, URINE NEGATIVE (NEG); LEUKOCYTE ESTERASE(NOT OR LARGE (NEG); NITRITE (URINE) NEG (NEG); WBC (NOT ORDERED) (RFLEX) 4 (0-5)
[2016-09-20 10:12] LABS: BASOPHILS 0 %; EOSINOPHILS 0 %; HEMATOCRIT 31.7 % (36.0-48.0); IMMATURE GRANULOCYTES 0.4 %; IMMATURE GRANULOCYTES ABSOLUTE 0.04 10/3/uL (0.0-0.11); LYMPHOCYTES 4.5 %; LYMPHOCYTES ABSOLUTE 0.49 10/3/uL (0.67-4.30); MEAN CORPUS HGB CONC 34.7 g/dL (32.0-36.0); MEAN CORPUSCULAR HEMOGLOB 31.1 pg (26.0-34.0); MEAN CORPUSCULAR VOLUME 89.5 fL (80-100); MEAN PLATELET VOLUME 10.2 fL (9.2-13.0); MONOCYTES 3.1 %; MONOCYTES ABSOLUTE 0.34 10/3/uL (0.21-1.20); NEUTROPHILS ABSOLUTE 9.97 10/3/uL (2.02-8.40); PLATELET COUNT 572 10/3/uL (150-400); RBC DISTRIBUTION WIDTH 14.2 % (12.0-16.0); RED CELL COUNT 3.54 10/6/uL (4.0-5.6); WHITE BLOOD CELLS 10.8 10/3/uL (4.5-10.5)
[2016-09-20 10:13] LABS: MANUAL DIFF NO %
[2016-09-20 10:36] LABS: CALCIUM, SERUM 8.1 MG/DL (8.5-10.4); CHLORIDE, SERUM 93 MMOL/L (96-112); CO2 (CARBON DIOXIDE) 25 MMOL/L (24-34); CREATININE 0.62 MG/DL (0.55-1.02); GFR AFRICAN AMERICAN 102 ML/MIN (>=60); GFR NON AFRICAN AMERICAN 88 ML/MIN (>=60); GLUCOSE, SERUM 89 MG/DL (60-99); PHOSPHORUS, SERUM 2.2 MG/DL (2.5-4.5); POTASSIUM, SERUM 3.5 MMOL/L (3.5-5.3); SODIUM, SERUM 132 MMOL/L (135-148)
[2016-09-20 10:38] LABS: BUN (BLOOD UREA NITROGEN) 17 MG/DL (6-23); CK-MB 2.6 NG/ML; CPK 87 U/L (0-200); TROPONIN I 0.08 NG/ML (<0.05); ULTRASENSITIVE TSH 0.831 MCIU/ML (0.358-3.740)
[2016-09-20 15:21] LABS: CK-MB 2.1 NG/ML; CPK 73 U/L (0-200); TROPONIN I 0.07 NG/ML (<0.05)
[2016-09-21 05:33] LABS: BASOPHILS 0 %; EOSINOPHILS 0 %; HEMOGLOBIN 10.5 g/dL (12.0-16.0); IMMATURE GRANULOCYTES 0.5 %; IMMATURE GRANULOCYTES ABSOLUTE 0.05 10/3/uL (0.0-0.11); LYMPHOCYTES 5.2 %; LYMPHOCYTES ABSOLUTE 0.52 10/3/uL (0.67-4.30); MEAN CORPUSCULAR HEMOGLOB 31.5 pg (26.0-34.0); MEAN CORPUSCULAR VOLUME 90.1 fL (80-100); MEAN PLATELET VOLUME 9.9 fL (9.2-13.0); MONOCYTES 7.7 %; MONOCYTES ABSOLUTE 0.77 10/3/uL (0.21-1.20); NEUTROPHILS 86.6 %; NEUTROPHILS ABSOLUTE 8.65 10/3/uL (2.02-8.40); PLATELET COUNT 546 10/3/uL (150-400); RBC DISTRIBUTION WIDTH 14.6 % (12.0-16.0); RED CELL COUNT 3.33 10/6/uL (4.0-5.6)
[2016-09-21 05:36] LABS: CALCIUM, SERUM 8.5 MG/DL (8.5-10.4); CHLORIDE, SERUM 101 MMOL/L (96-112); CO2 (CARBON DIOXIDE) 22 MMOL/L (24-34); GFR AFRICAN AMERICAN 103 ML/MIN (>=60); GFR NON AFRICAN AMERICAN 89 ML/MIN (>=60); GLUCOSE, SERUM 91 MG/DL (60-99); POTASSIUM, SERUM 3.9 MMOL/L (3.5-5.3); SODIUM, SERUM 134 MMOL/L (135-148)
[2016-09-21 05:37] LABS: BUN (BLOOD UREA NITROGEN) 11 MG/DL (6-23); TROPONIN I 0.05 NG/ML (<0.05)
[2016-09-21 05:49] LABS: MANUAL DIFF NO %
[2016-09-21] MEDS ORDERED: PRIN10 PO (18:43)
== END 2016-09-21 19:45 | disposition home or self-care (01) | DRG 309 ==
LOC: ER 21:54 → 6NO 09-20 02:06
PROVIDERS: Emergency Medicine; Internal Medicine; Internal Medicine Cardiovascular Disease; Internal Medicine Pulmonary Disease
PROC: 3E0G7KZ Introduction of Other Diagnostic Substance into Upper GI, Via Natural or Artificial Opening (ICD-10-PCS; principal; 2016-09-21)
DX: I48.0 Paroxysmal atrial fibrillation (principal); I50.22 Chronic systolic (congestive) heart failure; C78.7 Secondary malignant neoplasm of liver and intrahepatic bile duct; C78.00 Secondary malignant neoplasm of unspecified lung; C15.9 Malignant neoplasm of esophagus, unspecified; E46 Unspecified protein-calorie malnutrition; K94.22 Gastrostomy infection; E87.1 Hypo-osmolality and hyponatremia; Z68.1 Body mass index [BMI] 19.9 or less, adult; R13.10 Dysphagia, unspecified; I47.1 Supraventricular tachycardia; E87.6 Hypokalemia; E78.2 Mixed hyperlipidemia; I10 Essential (primary) hypertension; J44.9 Chronic obstructive pulmonary disease, unspecified; Z92.3 Personal history of irradiation; Z92.21 Personal history of antineoplastic chemotherapy; Z87.891 Personal history of nicotine dependence; Z79.899 Other long term (current) drug therapy; Z79.82 Long term (current) use of aspirin
CPT/HCPCS: 49465; 71010; 74177; 80048; 81001; 82550; 82553; 83605; 83735; 83880; 84100; 84443; 84484; 85025; 85610; 85730; 87040; 87086; 93005; 94640; 96374; 99285; A9270-GY; J0692; J2930; J3370; Q9967

== ENCOUNTER 2016-09-23 14:28 | Observation (INO) | payer MEDICARE, OTHER ==
--- NOTE | ~2016-09-23 | DS ---
Discharge Summary [place] [address] [place]. [address] NAME: TIERRA HARDY : 40 STATUS : DIS Jerald PAT#: [id number] AGE: 75 ADM/REG DATE : 09/23/16 MR#: [id number] REPORT SERV DATE: 09/26/16 DICTATED BY: KATIA ANDRADE DATE: 09/25/16 REPORT STATUS : Draft TRANSCRIBED BY: MODL DATE: 09/25/16 ADMISSION DATE: 09/23/2016 DISCHARGE DATE: 09/25/2016 CHIEF COMPLAINT: Fall with right-sided pain. DISCHARGE DIAGNOSES: 1. Metastatic head, neck cancer with progression on Opdivo. 2. Rib fracture. 3. Hyponatremia, improved. 4. Pain. 5. History of atrial fibrillation. HISTORY OF PRESENT ILLNESS: Please see full H and P by Dr. Spangler for details regarding initial presentation. HOSPITAL COURSE: 1. Metastatic head and neck cancer. The patient was seen by Dr. Wells from Oncology who recommended home with hospice given progressive decline despite Opdivo. She is interested and this hospice has been consulted. She will be discharged home with [facility]. 2. Rib fracture. She was discharged on pain control. 3. Pain, acute on chronic. She was initially started on steroids. Those have been stopped. She will continue with outpatient home pain medication. 4. Mild hyponatremia. Her serum sodium was 129 on admission. Last checked yesterday was 134, this has resolved. DISPOSITION: Home with home hospice. HOME MEDICATIONS: Same as admission with the addition of [place] p.r.n. CODE STATUS AT DISCHARGE: Need to be addressed with Hospice. At this time, she has still remained a full code but again this will need to be addressed with Hospice. Time spent on discharge greater than 30 minutes. DNK/MODL Katia Andrade MD / [id number] CC: Katia Andrade MD Discharge Summary [place] [address] [place]. [address] NAME: TIERRA HARDY : 40 STATUS : DIS Jerald PAT#: [id number] AGE: 75 ADM/REG DATE : 09/23/16 MR#: [id number] REPORT SERV DATE: 09/26/16 DICTATED BY: KATIA ANDRADE DATE: 09/25/16 REPORT STATUS : Draft TRANSCRIBED BY: RUBENS DATE: 09/25/16 BUTCH WILSON
--- NOTE | ~2016-09-23 | HP ---
History And Physical [place] [id number] [place]. [address] NAME: TIERRA HARDY : 40 STATUS : ADM Jerald PAT#: [id number] AGE: 75 ADM/REG DATE : 09/23/16 MR#: [id number] REPORT SERV DATE: 09/24/16 DICTATED BY: ARLETH LEÓN DATE: 09/23/16 REPORT STATUS : Draft TRANSCRIBED BY: MODSidney DATE: 09/23/16 DATE OF ADMISSION: 09/23/2016 CHIEF COMPLAINT: Fall with right-sided rib pain. HISTORY OF PRESENT ILLNESS: The patient was recently discharged approximately 48 hours ago home and was doing well from hospital. Did have one episode of diarrhea after returning home, but otherwise did well yesterday. However today, she had a same-level fall in her bathroom, landed on her tub, and had subsequent rib pain. Symptoms have been continuous , constant, mild to moderate, unrelenting, sharp without radiation associated with weakness, although no shortness of breath, fever, chills, nausea, or vomiting. Did have one episode of diarrhea, which has resolved. Pain is worsened with deep breathing, exertion, and palpation; relieved slightly by rest. Symptoms are still currently present, reproducible. The patient reports that she simply just lost her balance, but no loss of conscious or head trauma. It is quite difficult to control pain at this time. REVIEW OF SYSTEMS: Ten-point review of systems negative except for that noted in the HPI. 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 SOCIAL HISTORY: A 63-[id number]-maba smoking, quit a few months ago. Occasional alcohol. No illegal drugs. SURGICAL HISTORY: PEG placement. ALLERGIES: NO KNOWN DRUG ALLERGIES. FAMILY HISTORY: Renal cell carcinoma and diabetes. HOME MEDICATIONS: Tylenol, albuterol, Norvasc, aspirin, Lasix, Prinivil, Megace, pravastatin, antihistamine, and chemotherapy by Dr. Wells. EKG: Unchanged from 09/21/2016 noted with PVCs, prolonged QT, T-wave inversions were also noted in prior EKGs in anterior lateral leads. PHYSICAL EXAMINATION: VITAL SIGNS: The patient's blood pressure 138/53, after morphine, is down to 100/50s; temperature 97.7; pulse 91; respirations 22; O2 is 96%. GENERAL: Elderly, frail, temporal wasting. Mild discomfort. EYES: No scleral icterus. EOMI. ENT: Nares patent. Dry mucous membranes. CHEST: Pain with palpation on the right side. RESPIRATORY: Mild end-expiratory wheeze. Increased AP diameter. CV: Regular rate. No rubs. No pedal edema. History And Physical [address] [place]. [address] NAME: TIERRA HARDY : 40 STATUS : ADM Jerald PAT#: [id number] AGE: 75 ADM/REG DATE : 09/23/16 MR#: [id number] REPORT SERV DATE: 09/24/16 DICTATED BY: ARLETH LEÓN DATE: 09/23/16 REPORT STATUS : Draft TRANSCRIBED BY: RUBENS DATE: 09/23/16 GI: Soft, nontender. PEG in place. : Deferred. MUSCULOSKELETAL: Moves all extremities x4. SKIN: Warm and dry. HEME: No bleeding or bruising. NEURO: Alert and oriented. Moves all extremities x4. PSYCH: Appropriate mood and affect. IMAGING: CT, acute nondisplaced posterolateral right sixth and mildly displaced posterolateral right seventh and eighth rib fractures since prior CT. No pneumothorax or other evidence of intrathoracic traumatic injury. Continued bilateral pleural and pulmonary nodules and loculated small pleural effusions mediastinal adenopathy. CT thoracic spine, no evidence of acute trauma thoracic spine. Lumbar grade 1 spondylolisthesis L4 and L5 of a few millimeters. No evidence of acute trauma to lumbar spine. Noted DJD. WBC 16.2, H and H 12.1 and 34.5, platelets 499, INR 1.1. Sodium 129, potassium 3.4, bicarb 23, BUN and creatinine 19 and 0.83, troponin 0.1, magnesium 2.0. ASSESSMENT AND PLAN: 1. Same-level fall. 2. Rib fracture. 3. Intractable pain. 4. Hyponatremia. 5. Chronic obstructive pulmonary disease. 6. Atrial fibrillation. 7. Lung cancer. 8. Leukocytosis. 9. Troponin elevation. PLAN: 1. For same-level fall, PT, OT. 2. Rib fracture noted on CT after same-level fall. No loss of consciousness. Monitor. Supportive treatment. 3. Intractable pain. Has been given IV morphine. Still requiring additional medications; however, blood pressure decreased after IV morphine. Give Toradol, lidocaine patch, IV steroids, and monitor. 4. Hyponatremia. Serial monitoring. Did have diarrhea episode. Gentle IV fluids. 5. COPD. Was being tapered on prednisone. Change to IV for additional pain control. 6. Atrial fibrillation. Appears sinus on panel monitor. 7. Lung cancer history per Dr. Wells. 8. Leukocytosis likely stress response after steroid taper and recent hospitalization and likely exacerbation by acute stress demargination. 9. Troponin elevation. Serial monitor troponins. EKG, although does have T-wave inversion in multiple leads, these are comparable to prior to discharge, likely type 2 demand from acute fall. All questions were answered with the patient and family. History And Physical [address] [address] NAME: TIERRA HARDY : 40 STATUS : ADM Jerald PAT#: [id number] AGE: 75 ADM/REG DATE : 09/23/16 MR#: [id number] REPORT SERV DATE: 09/24/16 DICTATED BY: ARLETH LEÓN DATE: 09/23/16 REPORT STATUS : Draft TRANSCRIBED BY: RUBENS DATE: 09/23/16 DDN/RUBENS Arleth León MD / [id number] CC: MD BUTCH Cain
[~2016-09-23 14:28] MED LIST changes: +ALBUTEROL0.083 % INH; +ASAB PO; +PRIN10 PO
[2016-09-23 15:38] LABS: BASOPHILS 0.1 %; BASOPHILS ABSOLUTE 0.01 10/3/uL (0.0-0.16); EOSINOPHILS 0 %; HEMATOCRIT 34.5 % (36.0-48.0); HEMOGLOBIN 12.1 g/dL (12.0-16.0); IMMATURE GRANULOCYTES 0.6 %; LYMPHOCYTES 6.4 %; LYMPHOCYTES ABSOLUTE 1.04 10/3/uL (0.67-4.30); MANUAL DIFF NO %; MEAN CORPUS HGB CONC 35.1 g/dL (32.0-36.0); MEAN CORPUSCULAR HEMOGLOB 30.9 pg (26.0-34.0); MEAN CORPUSCULAR VOLUME 88.2 fL (80-100); MEAN PLATELET VOLUME 9.8 fL (9.2-13.0); MONOCYTES 2.7 %; MONOCYTES ABSOLUTE 0.44 10/3/uL (0.21-1.20); NEUTROPHILS 90.2 %; NEUTROPHILS ABSOLUTE 14.57 10/3/uL (2.02-8.40); PLATELET COUNT 499 10/3/uL (150-400); RBC DISTRIBUTION WIDTH 14.7 % (12.0-16.0); RED CELL COUNT 3.91 10/6/uL (4.0-5.6); WHITE BLOOD CELLS 16.2 10/3/uL (4.5-10.5)
[2016-09-23 15:45] LABS: INTERNATIONAL NORMAL RATI 1.1 UNITS (-); PARTIAL THROMBO TIME 25.2 SEC (22.5-37.2); PROTIME (NOT ORD) 14.2 SEC (12.0-14.5)
[2016-09-23 15:55] LABS: BUN (BLOOD UREA NITROGEN) 19 MG/DL (6-23); CALCIUM, SERUM 8.4 MG/DL (8.5-10.4); CHLORIDE, SERUM 94 MMOL/L (96-112); CO2 (CARBON DIOXIDE) 23 MMOL/L (24-34); CREATININE 0.83 MG/DL (0.55-1.02); GFR AFRICAN AMERICAN 80 ML/MIN (>=60); GFR NON AFRICAN AMERICAN 69 ML/MIN (>=60); GLUCOSE, SERUM 92 MG/DL (60-99); POTASSIUM, SERUM 3.4 MMOL/L (3.5-5.3); SODIUM, SERUM 129 MMOL/L (135-148)
[2016-09-23 15:57] LABS: CHEST PAIN PROFILE TAT 0 Hrs 23 Mins
[2016-09-24 06:41] LABS: BASOPHILS 0 %; EOSINOPHILS 0.1 %; EOSINOPHILS ABSOLUTE 0.01 10/3/uL (0.0-0.53); HEMATOCRIT 31.9 % (36.0-48.0); HEMOGLOBIN 11.1 g/dL (12.0-16.0); IMMATURE GRANULOCYTES 0.4 %; IMMATURE GRANULOCYTES ABSOLUTE 0.05 10/3/uL (0.0-0.11); LYMPHOCYTES ABSOLUTE 0.52 10/3/uL (0.67-4.30); MEAN CORPUS HGB CONC 34.8 g/dL (32.0-36.0); MEAN CORPUSCULAR HEMOGLOB 31.2 pg (26.0-34.0); MEAN CORPUSCULAR VOLUME 89.6 fL (80-100); MEAN PLATELET VOLUME 9.8 fL (9.2-13.0); MONOCYTES 2.4 %; MONOCYTES ABSOLUTE 0.31 10/3/uL (0.21-1.20); NEUTROPHILS 93.1 %; NEUTROPHILS ABSOLUTE 12.07 10/3/uL (2.02-8.40); PLATELET COUNT 442 10/3/uL (150-400); RBC DISTRIBUTION WIDTH 14.6 % (12.0-16.0); RED CELL COUNT 3.56 10/6/uL (4.0-5.6)
[2016-09-24 06:42] LABS: MANUAL DIFF NO %
[2016-09-24 07:00] LABS: ALBUMIN 2.4 G/DL (3.5-5.0); CALCIUM, SERUM 8.4 MG/DL (8.5-10.4); CHLORIDE, SERUM 99 MMOL/L (96-112); CO2 (CARBON DIOXIDE) 21 MMOL/L (24-34); GFR AFRICAN AMERICAN 103 ML/MIN (>=60); GFR NON AFRICAN AMERICAN 89 ML/MIN (>=60); GLUCOSE, SERUM 87 MG/DL (60-99); POTASSIUM, SERUM 3.6 MMOL/L (3.5-5.3); SGOT(AST) 79 U/L (5-40); SGPT(ALT) 43 U/L (5-65); SODIUM, SERUM 134 MMOL/L (135-148); TOTAL BILIRUBIN 0.4 MG/DL (0-1.2); TOTAL PROTEIN 5.8 G/DL (6.0-8.5)
[2016-09-24 07:01] LABS: A/G RATIO 0.7 (0.7-1.9); ALKALINE PHOSPHATASE 104 U/L (45-117); BUN (BLOOD UREA NITROGEN) 14 MG/DL (6-23); GLOBULIN 3.4 G/DL (2.5-4.1)
[2016-09-25] MEDS ORDERED: NORCO1 TA1 PO (14:23)
== END 2016-09-25 16:07 | disposition home or self-care (01) ==
LOC: ER 14:28 → 5NO 19:51
PROVIDERS: Emergency Medicine; Student in an Organized Health Care Education/Training Program
DX: S22.39XA Fracture of one rib, unspecified side, initial encounter for closed fracture (principal); W18.30XA Fall on same level, unspecified, initial encounter; J44.9 Chronic obstructive pulmonary disease, unspecified; E87.1 Hypo-osmolality and hyponatremia; I48.91 Unspecified atrial fibrillation; D72.829 Elevated white blood cell count, unspecified; C76.0 Malignant neoplasm of head, face and neck; Z92.3 Personal history of irradiation; Z92.21 Personal history of antineoplastic chemotherapy; Z87.891 Personal history of nicotine dependence; Z83.3 Family history of diabetes mellitus; Z80.51 Family history of malignant neoplasm of kidney; Z85.118 Personal history of other malignant neoplasm of bronchus and lung; Z79.82 Long term (current) use of aspirin; Z79.899 Other long term (current) drug therapy; Z98.890 Other specified postprocedural states
CPT/HCPCS: 71250; 72128; 72131; 80048; 80053; 83735; 84484; 85025; 85610; 85730; 93005; 94640; 96372; 96374; 96375; 96376; 97116-GP; 97161-GP; 97165-GO; 99285; A9270-GY; G0378; G8978-CJ-GP; G8979-CI-GP; G8987-CK-GO; G8988-CJ-GO; J1885; J2405; J2920